=== PATIENT | male | born 1975 | race African-American/Black ===

== ENCOUNTER 2017-05-01 09:57 | Observation (INO) | payer MEDICARE ==
[~2017-05-01 09:57] MED LIST: COUM7.5T PO; FURO40TA PO; LISI10TA3 PO; WARF-23 PO
[2017-05-01 09:58] VITALS: BP 176/99; PULSE 80; RESP 24; TEMP 98.4; O2SAT 97
[2017-05-01] MEDS ORDERED: SODIUM CHLORIDE 0.9% FLUSH 10 ML FLUSH IVF PRN (10:30)
[2017-05-01] MEDS ORDERED: XARE10TA PO (10:33)
--- NOTE | 2017-05-01 10:37 | PD ---
HPI Chief Complaint: Chest Pain Time Seen by Provider: 10:30 Travel History International Travel<30 days: No Contact w/Intl Traveler<30days: No History of Present Illness HPI Patient is a 41-year-old male presenting to emergency for evaluation of chest pain. Patient was sent by his primary care provider Dr. Craft. Patient states the pain is in his right upper chest wall with radiation across the chest wall. He reports that has been present for several weeks, constant in nature. At worst the pain is an 8 out of 10 and pressure-like. Patient states that at times it's accompanied by a hot flushed feeling. He denies any nausea, vomiting , abdominal pain, fever, chills. Pain is not alleviated or exacerbated by movement or food. Patient was given aspirin and nitroglycerin in the doctor's office. He is on Xarelto currently for DVT prophylaxis. Past medical history is significant for hypertension, obesity, lymphedema. Patient denies any tobacco or illicit drug use. 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 Reported Meds & Prescriptions Reported Meds & Active Scripts Active Reported Xarelto (Rivaroxaban) 20 Mg Tab 20 Mg PO DAILY Furosemide 40 Mg Tab 40 Mg PO DAILY Lisinopril 10 Mg Tab 10 Mg PO DAILY Review of Systems Except as stated in HPI: all other systems reviewed are Neg Eyes: No: Blurred Vision HENT: No: Headaches Cardiovascular: Positive: Chest Pain or Discomfort, Diaphoresis, Edema, No: Tachycardia, Dyspnea on exertion Respiratory: Positive: Shortness of Breath Gastrointestinal: No: Nausea, Vomiting, Abdominal Pain Musculoskeletal: Positive: Myalgias Neurologic: No: Weakness, Dizziness, Syncope, Focal Abnormalities Physical Exam Narrative GENERAL: Morbidly obese, well-developed, alert male. Resting comfortably, in no acute distress. SKIN: Warm and dry. HEAD: Atraumatic. Normocephalic. EYES: Pupils equal and round. No scleral icterus. No injection or drainage. ENT: No nasal bleeding or discharge. Mucous membranes pink and moist. NECK: Trachea midline. No JVD. CARDIOVASCULAR: Regular rate and rhythm. RESPIRATORY: No accessory muscle use. Clear to auscultation. Breath sounds equal bilaterally, diminished in bases. GASTROINTESTINAL: Abdomen soft, non-tender, nondistended. Hepatic and splenic margins not palpable. MUSCULOSKELETAL: Extremities without clubbing, cyanosis. No obvious deformities. Chronic lymphedema in bilateral lower extremities NEUROLOGICAL: Awake and alert. No obvious cranial nerve deficits. Motor grossly within normal limits. Five out of 5 muscle strength in the arms and legs. Normal speech. PSYCHIATRIC: Appropriate mood and affect; insight and judgment normal. Data Data Last Documented VS Vital Signs Date Time Temp Pulse Resp B/P Pulse Ox O2 Delivery O2 Flow Rate FiO2 05/01/17 10:30 16 05/01/17 10:30 98 Nasal Cannula 2 05/01/17 09:58 98.4 80 176/99 Orders Electrocardiogram (05/01/17 10:29) Ckmb (Isoenzyme) Profile (05/01/17 10:29) Complete Blood Count With Diff (05/01/17 10:29) Comprehensive Metabolic Panel (05/01/17 10:29) Magnesium (Mg) (05/01/17 10:29) Prothrombin Time / Inr (Pt) (05/01/17 10:29) Act Partial Throm Time (Ptt) (05/01/17 10:29) Troponin I (05/01/17 10:29) Lipase (05/01/17 10:29) Chest, Single Ap (05/01/17 10:29) Ecg Monitoring (05/01/17 10:29) Bilateral Bp Monitoring (05/01/17 10:29) Iv Access Insert/Monitor (05/01/17 10:29) Oximetry (05/01/17 10:29) Oxygen Administration (05/01/17 10:29) Sodium Chloride 0.9% Flush (Ns Flush) (05/01/17 10:30) Acetaminophen (Tylenol) (05/01/17 11:00) MDM Medical Decision Making Medical Screen Exam Complete: Yes Emergency Medical Condition: Yes Interpretation(s) Vital Signs Date Time Temp Pulse Resp B/P Pulse Ox O2 Delivery O2 Flow Rate FiO2 05/01/17 09:58 98.4 80 24 176/99 97 Room Air Differential Diagnosis ACS versus USA versus chest wall strain versus metabolic abnormality versus other Narrative Course Patient is a 41-year-old morbidly obese male sent by his primary doctor for evaluation of chest pain. Pain is reproducible on palpation. Patient's vital signs are stable. Labs and imaging ordered and pending. IV access established , patient placed on telemetry monitoring and continuous pulse oximetry. She reports having a stress test approximately one to one and half years ago in [place], he is uncertain what the results were. He denies any history of cardiac catheter. Care of patient transferred to Edna ROLDAN. Diamond Guerrero May 01, 2017 10:37
[2017-05-01] MEDS ORDERED: XARE20TA PO (10:52)
[2017-05-01] MEDS ORDERED: ACETAMINOPHEN 325 MG TAB PO ONE (11:00)
[2017-05-01 11:02] LABS: AUTOMATED NEUTROPHIL # 3.9 TH/MM3 (1.8-7.7); BASOPHIL % 0.4 % (0.0-2.0); EOSINOPHIL # 0.1 TH/MM3 (0-0.4); EOSINOPHIL % 1.9 % (0.0-4.0); HEMATOCRIT 41.5 % (39.0-51.0); HEMO FLAGS DIFF FINAL; LYMPHOCYTE # 1.8 TH/MM3 (1.0-4.8); MEAN CELL VOLUME 82.2 FL (80.0-100.0); MEAN CORPUSCULAR HEMOGLOBIN 26.7 PG (27.0-34.0); MEAN CORPUSCULAR HGB CONC 32.5 % (32.0-36.0); MONO % 5.7 % (0.0-8.0); PLATELET COUNT 224 TH/MM3 (150-450); RED BLOOD COUNT 5.06 MIL/MM3 (4.50-5.90); RED CELL DISTRIBUTION WIDTH 14.7 % (11.6-17.2); WHITE BLOOD COUNT 6.2 TH/MM3 (4.0-11.0)
[2017-05-01 11:09] LABS: APTT (PATIENT) 27.6 SEC (24.3-30.1); INTERNATIONAL NORMALIZED RATIO 0.9 RATIO; PROTHROMBIN TIME - PATIENT 10.4 SEC (9.8-11.6)
--- NOTE | 2017-05-01 11:19 | PD ---
Physical Exam Date Seen by Provider: May 01, 2017 Time Seen by Provider: 11:13 Narrative 41 YO M presents to the ED for evaluation of 2 week history of constant right chest pain. Sent by PCP today. On Lasix and Xarelto. Patient was initially seen by EDWARD Wilburn, and signed out to me with labs pending. Please see her note for full H & P. On my exam: GENERAL: Morbidly obese pleasant black male in no acute distress. SKIN: Focused skin assessment warm/dry. HEAD: Normocephalic. EYES: No scleral icterus. No injection or drainage. NECK: Supple, trachea midline. No JVD or lymphadenopathy. CARDIOVASCULAR: Regular rate and rhythm without murmurs, gallops, or rubs. CHEST: Point tenderness in the right upper chest, adjacent to the right shoulder. Otherwise nontender throughout without deformity or crepitus. No retractions or use of accessory muscles. RESPIRATORY: Breath sounds clear and equal bilaterally. No accessory muscle use. GASTROINTESTINAL: Abdomen soft, non-tender, nondistended. MUSCULOSKELETAL: No cyanosis. Marked edema in the left leg. Hohmann sign negative bilaterally. BACK: Nontender without obvious deformity. No CVA tenderness. Data Data Last Documented VS Vital Signs Date Time Temp Pulse Resp B/P Pulse Ox O2 Delivery O2 Flow Rate FiO2 05/01/17 10:30 16 05/01/17 10:30 98 Nasal Cannula 2 05/01/17 09:58 98.4 80 176/99 Orders Electrocardiogram (05/01/17 10:29) Ckmb (Isoenzyme) Profile (05/01/17 10:29) Complete Blood Count With Diff (05/01/17 10:29) Comprehensive Metabolic Panel (05/01/17 10:29) Magnesium (Mg) (05/01/17 10:29) Prothrombin Time / Inr (Pt) (05/01/17 10:29) Act Partial Throm Time (Ptt) (05/01/17 10:29) Troponin I (05/01/17 10:29) Lipase (05/01/17 10:29) Chest, Single Ap (05/01/17 10:29) Ecg Monitoring (05/01/17 10:29) Bilateral Bp Monitoring (05/01/17 10:29) Iv Access Insert/Monitor (05/01/17 10:29) Oximetry (05/01/17 10:29) Oxygen Administration (05/01/17 10:29) Sodium Chloride 0.9% Flush (Ns Flush) (05/01/17 10:30) Acetaminophen (Tylenol) (05/01/17 11:00) CKMB (05/01/17 10:30) CKMB% (05/01/17 10:30) Admit Order (Ed Use Only) (05/01/17 12:07) Labs Laboratory Tests Test 05/01/17 10:30 White Blood Count 6.2 TH/MM3 Red Blood Count 5.06 MIL/MM3 Hemoglobin 13.5 GM/DL Hematocrit 41.5 % Mean Corpuscular Volume 82.2 FL Mean Corpuscular Hemoglobin 26.7 PG Mean Corpuscular Hemoglobin 32.5 % Concent Red Cell Distribution Width 14.7 % Platelet Count 224 TH/MM3 Mean Platelet Volume 8.6 FL Neutrophils (%) (Auto) 63.0 % Lymphocytes (%) (Auto) 29.0 % Monocytes (%) (Auto) 5.7 % Eosinophils (%) (Auto) 1.9 % Basophils (%) (Auto) 0.4 % Neutrophils # (Auto) 3.9 TH/MM3 Lymphocytes # (Auto) 1.8 TH/MM3 Monocytes # (Auto) 0.4 TH/MM3 Eosinophils # (Auto) 0.1 TH/MM3 Basophils # (Auto) 0.0 TH/MM3 CBC Comment DIFF FINAL Differential Comment Prothrombin Time 10.4 SEC Prothromb Time International 0.9 RATIO Ratio Activated Partial 27.6 SEC Thromboplast Time Sodium Level 138 MEQ/L Potassium Level 4.0 MEQ/L Chloride Level 104 MEQ/L Carbon Dioxide Level 27.4 MEQ/L Anion Gap 7 MEQ/L Blood Urea Nitrogen 14 MG/DL Creatinine 1.04 MG/DL Estimat Glomerular Filtration 96 ML/MIN Rate Random Glucose 105 MG/DL Calcium Level 9.2 MG/DL Magnesium Level 2.2 MG/DL Total Bilirubin 0.2 MG/DL Aspartate Amino Transf 20 U/L (AST/SGOT) Alanine Aminotransferase 28 U/L (ALT/SGPT) Alkaline Phosphatase 80 U/L Total Creatine Kinase 140 U/L Creatine Kinase MB 1.0 NG/ML Troponin I LESS THAN 0.02 NG/ML Total Protein 8.1 GM/DL Albumin 3.6 GM/DL Lipase 97 U/L MDM Supervised Visit with MONA: No Differential Diagnosis Atypical chest pain versus musculoskeletal pain versus angina versus ACS versus electrolyte abnormality versus other Narrative Course 41-year-old morbidly obese male with 2 week history of constant right-sided chest pain. No alleviating or exacerbating factors reported. Patient is on Xarelto for DVT prophylaxis. Vitals reviewed. Physical exam: Chest CTAB. Point tenderness in the upper right chest, adjacent to the shoulder. Marked edema in the left leg. Homans sign negative bilaterally. Patient was administered nitro and ASA at the PCP before arrival. CBC: WBC 6.2, hemoglobin 13.5. INR 0.9. Lipase 97. CMP: Unremarkable. EKG rate 76, sinus rhythm. WA interval 170, QRS 80, QTC 394. No acute ST changes. Reviewed by Dr. Avila CXR: Cardiomegaly, otherwise unremarkable per radiology read. Cardiac enzymes negative x1 Plan to admit to the [facility]. Patient is amenable to observation. Please see chest pain center notes for disposition. Diagnosis Primary Impression: Chest pain Qualified Code: R07.9 - Chest pain, unspecified type Edna Rice May 01, 2017 11:19
[2017-05-01 11:28] LABS: ALT (GPT) 28 U/L (12-78); ANION GAP 7 MEQ/L (5-15); AST (GOT) 20 U/L (15-37); BICARBONATE 27.4 MEQ/L (21.0-32.0); BLOOD UREA NITROGEN 14 MG/DL (7-18); CHLORIDE 104 MEQ/L (98-107); GLOMERULAR FILTRATION RATE 96 ML/MIN (>89); MAGNESIUM 2.2 MG/DL (1.5-2.5); SODIUM (NA) 138 MEQ/L (136-145)
--- NOTE | 2017-05-01 11:37 | RADRPT ---
EXAM DATE/TIME: 05/01/2017 11:03 [facility] COMPARISON: No previous studies available for comparison. INDICATIONS : Chest pain, and right arm pain, Short of breath. MEDICAL HISTORY : hx of blood clot in one of his arms, high bp SURGICAL HISTORY : None. ENCOUNTER: Initial ACUITY: 1 day PAIN SCORE: 8/10 LOCATION: Bilateral chest FINDINGS: The lungs are clear. The heart is minimally enlarged. The pulmonary vascularity is normal. There is n o evidence for infiltrate or failure. The portion of the bony skeleton visualized is unremarkable. CONCLUSION: Compensated cardiomegaly otherwise negative Boston Brewer MD FACR on May 01, 2017 at 11:34 Board Certified Radiologist. This report was verified electronically.
[2017-05-01 11:42] LABS: ALKALINE PHOSPHATASE 80 U/L (45-117); CREATINE KINASE 140 U/L (39-308); TOTAL BILIRUBIN ADULT 0.2 MG/DL (0.2-1.0)
[2017-05-01 12:00] VITALS: BP 147/75; PULSE 68; RESP 18; O2SAT 98
[2017-05-01 12:39] VITALS: BP 166/86; PULSE 70; RESP 20; O2SAT 98
--- NOTE | 2017-05-01 13:25 | HHI.DCPOC ---
Discharge Care Plan Diagnosis: (1) Chest pain, atypical (2) HTN (hypertension) (3) Obesity Goals to Promote Your Health * To prevent worsening of your condition and complications * To maintain your health at the optimal level Directions to Meet Your Goals Take your medications as prescribed Follow your dietary instruction Follow activity as directed Keep your appointments as scheduled Take your immunizations and boosters as scheduled If your symptoms worsen call your PCP, if no PCP go to Urgent Care Center or Emergency Room Smoking is Dangerous to Your Health. Avoid second hand smoke Call the 24-hour hour crisis hotline for domestic abuse at Josh Islas May 01, 2017 13:25
[2017-05-01] MEDS ORDERED: ONDANSETRON HCL 4 MG/2 ML VIAL IV PRN (13:30)
[2017-05-01] MEDS ORDERED: KETOROLAC TROMETHAMINE 30 MG/ML (IVP) VIAL IVP ONE (13:30)
[2017-05-01] MEDS ORDERED: ACETAMINOPHEN 500 MG CPLT PO PRN (13:30)
[2017-05-01] MEDS ORDERED: ACETAMINOPHEN/HYDROcodone 325 MG/7.5 MG TAB PO PRN (13:30)
--- NOTE | 2017-05-01 13:48 | HHI.HP ---
HPI Primary Care Physician Kem Craft MD Chief Complaint Chest pain History of Present Illness This is a 41-year-old male that presents to ED with a complaint of right-sided chest discomfort that has been there constantly for at least 3 weeks. Certain movements seem to worsen at any also states it hurt when the PA pressed on his chest in the ED. Cannot recall any injury that may have caused discomfort. Denies history of CAD. Believes he had a stress test a couple years ago and that was normal. This was performed in [place]. Denies recent illness. Denies fevers or chills. Review of Systems General: Patient denies fevers, chills recent, and recent travel HEENT: Patient denies headache, sore throat, difficulty swallowing. Cardiovascular: Has the chest discomfort as mentioned above. Denies sensation of heart beating rapidly or irregularly. No syncope. Denies diaphoresis. Respiratory: Denies shortness of breath or inspirational chest discomfort. Denies coughing wheezing or hemoptysis. GI: Patient denies nausea, vomiting, diarrhea, abdominal pain, bloody stools. Musculoskeletal: Patient denies joint pain or edema. Complains of chronic edema in bilateral lower legs. Neurovascular: Patient denies numbness, tingling, weakness in extremities. Denies headache. Endocrine: Denies polyuria and polydipsia. Hematologic: Denies easy bruising. Skin: Denies rash or itching. Currently there are no wounds. 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 Past history tobacco abuse but quit 2 years ago. Denies diabetes, hyperlipidemia, and known CAD. Past Surgical History Denies. Reported Medications Reported Meds & Active Scripts Active Reported Xarelto (Rivaroxaban) 20 Mg Tab 20 Mg PO DAILY Furosemide 40 Mg Tab 40 Mg PO DAILY Lisinopril 10 Mg Tab 10 Mg PO DAILY Active Ordered Medications Current Medications Medications (Trade) Dose Ordered Sig/Brandon Route Start Time Stop Time Status Last Admin (NS Flush) 2 ml UNSCH PRN IVF 05/01/17 10:30 (NS Flush) 2 ml UNSCH PRN IVF 05/01/17 13:30 UNV (NS Flush) 2 ml BID IVF 05/01/17 21:00 UNV (Tylenol) 500 mg Q4H PRN PO 05/01/17 13:30 UNV ([place] 7.5-325 Mg) 1 tab Q4H PRN PO 05/01/17 13:30 UNV (Zofran Inj) 4 mg Q6H PRN IV 05/01/17 13:30 UNV Family History Denies family history of CAD. Social History Patient quit smoking 2 years ago. Denies alcohol or illicit drugs. Physical Exam Vital Signs Vital Signs Date Time Temp Pulse Resp B/P Pulse Ox O2 Delivery O2 Flow Rate FiO2 05/01/17 12:39 70 20 166/86 98 Room Air 05/01/17 10:30 16 05/01/17 10:30 98 Nasal Cannula 2 05/01/17 09:58 98.4 80 24 176/99 97 Room Air Physical Exam GENERAL: This is a well-nourished, well-developed patient, in no apparent distress. Patient speaks in clear complete sentences. Patient is pleasant. HEENT: Head is atraumatic and normocephalic. Neck is supple without lymphadenopathy and trachea is midline. No JVD or carotid bruits. CARDIOVASCULAR: Regular rate and rhythm without murmurs, gallops, or rubs. RESPIRATORY: Clear to auscultation. Breath sounds equal bilaterally. No wheezes , rales, or rhonchi. Chest wall is nontender. No use of accessory muscles. GASTROINTESTINAL: Abdomen is nontender, nondistended. Abdomen soft. No obvious pulsatile mass or bruit. No CVA tenderness. Strong femoral pulses bilaterally. Normal bowel sounds in all quadrants. MUSCULOSKELETAL: Patient is moving upper and lower extremities freely. There is bilateral lower extremity edema. He has chronic lymphedema. There is venous stasis bilateral lower extremities. No calf tenderness and, no Homans sign. Strong pulses in upper and lower extremities. NEUROLOGICAL: Patient is alert and oriented. Cranial nerves 2-12 are grossly intact. No focal deficits and speech is clear. SKIN: No rash and turgor is normal. There is venous stasis a bilateral lower extremities. Laboratory Laboratory Tests Test 05/01/17 10:30 White Blood Count 6.2 Red Blood Count 5.06 Hemoglobin 13.5 Hematocrit 41.5 Mean Corpuscular Volume 82.2 Mean Corpuscular Hemoglobin 26.7 Mean Corpuscular Hemoglobin 32.5 Concent Red Cell Distribution Width 14.7 Platelet Count 224 Mean Platelet Volume 8.6 Neutrophils (%) (Auto) 63.0 Lymphocytes (%) (Auto) 29.0 Monocytes (%) (Auto) 5.7 Eosinophils (%) (Auto) 1.9 Basophils (%) (Auto) 0.4 Neutrophils # (Auto) 3.9 Lymphocytes # (Auto) 1.8 Monocytes # (Auto) 0.4 Eosinophils # (Auto) 0.1 Basophils # (Auto) 0.0 CBC Comment DIFF FINAL Differential Comment Prothrombin Time 10.4 Prothromb Time International 0.9 Ratio Activated Partial 27.6 Thromboplast Time Sodium Level 138 Potassium Level 4.0 Chloride Level 104 Carbon Dioxide Level 27.4 Anion Gap 7 Blood Urea Nitrogen 14 Creatinine 1.04 Estimat Glomerular Filtration 96 Rate Random Glucose 105 Calcium Level 9.2 Magnesium Level 2.2 Total Bilirubin 0.2 Aspartate Amino Transf 20 (AST/SGOT) Alanine Aminotransferase 28 (ALT/SGPT) Alkaline Phosphatase 80 Total Creatine Kinase 140 Creatine Kinase MB 1.0 Troponin I LESS THAN 0.02 Total Protein 8.1 Albumin 3.6 Lipase 97 Result Diagram: 05/01/17 1030 05/01/17 1030 Imaging Last 24 hours Impressions Chest X-Ray 05/01/17 1029 Signed Impressions: Service Date/Time: Monday, May 01, 2017 11:03 - CONCLUSION: Compensated cardiomegaly otherwise negative Boston Brewer MD FACR Course Initial EKG has sinus rhythm without significant ST segment depressions or elevations. Assessment and Plan Assessment and Plan * Atypical chest pain: Patient's first troponin and EKG are normal. He has been seen by Dr. Calvert of cardiology in the chest pain center. His discomfort appears musculoskeletal in nature and he'll be discharged home at this time with instructions to follow-up with his primary care physician. * Hypertension: Continue current medication. * Obesity: Patient has been counseled on importance of diet, excise, and weight loss. * Chronic lymphedema: Patient is a follow-up with his primary care physician. Patient is stable at this time. He is agreeable to this plan. Josh Islas May 01, 2017 13:48
[2017-05-01] MEDS ORDERED: SODIUM CHLORIDE 0.9% FLUSH 10 ML FLUSH IV FLUSH PRN (14:45)
--- NOTE | 2017-05-01 20:12 | EKG ---
Date Performed: 05/01/2017 Time Performed: 10:09:34 PTAGE: 41 years EKG: Sinus rhythm NORMAL ECG NO PREVIOUS TRACING DOCTOR: Koko Cintron Interpretating Date/Time 05/01/2017 20:10:20
[2017-05-01] MEDS ORDERED: SODIUM CHLORIDE 0.9% FLUSH 10 ML FLUSH IV FLUSH SCH (21:00)
== END 2017-05-01 14:35 | disposition home or self-care (01) ==
LOC: NEPE 09:57 → NEDH 12:10 → UNDOADMOB 12:10 → NEDA 12:10 → UNDODISOB 14:35
DX: R07.89 Other chest pain (principal); E66.9 Obesity, unspecified; E11.9 Type 2 diabetes mellitus without complications; I10 Essential (primary) hypertension; I89.0 Lymphedema, not elsewhere classified; Z86.718 Personal history of other venous thrombosis and embolism; Z79.01 Long term (current) use of anticoagulants; Z79.899 Other long term (current) drug therapy; Z71.3 Dietary counseling and surveillance; Z87.891 Personal history of nicotine dependence
CPT/HCPCS: 71010; 80053; 82550; 82552; 83690; 83735; 84484; 85025; 85610; 85730; 93005; 99285; G0378